=== PATIENT | female | born 1970 | race Caucasian/White ===

== ENCOUNTER 2018-01-27 05:56 | Inpatient (IN) | payer BC ==
[2018-01-27] MEDS: TRANEXAMIC ACID 1,000 MG in DEXTROSE 5% 100 ML IVPB (06:00)
[2018-01-27] MEDS: SOD CHLORIDE 0.9% 100 ML, TRANEXAMIC ACID 3,000 MG IRR (06:00)
[2018-01-27] MEDS ORDERED: BUPIVACAINE 0.5% (SDV) 30 ML, morphine SULFATE (PF) 8 MG, EPINEPHrine 0.3 MG, KETOROLAC... IRR (06:00)
[2018-01-27] MEDS: CEFAZOLIN 2 GM/50 ML (PMX) 50 ML IVPB (06:00)
[2018-01-27] MEDS: DEXAMETHASONE 1 MG TAB PO (06:36)
[2018-01-27] MEDS: GABAPENTIN 300 MG CAP PO ×2 (06:36→21:12)
[2018-01-27] MEDS: traMADol 50 MG TAB PO (06:44)
[2018-01-27] MEDS ORDERED: THROMBIN 5000 UNIT VIAL (06:55)
[2018-01-27] MEDS ORDERED: CA CHLORIDE 10% 10 ML SYRINGE (06:56)
[2018-01-27] MEDS ORDERED: morphine SULFATE/PF (10 MG/10 ML) INJ (07:01)
[2018-01-27] MEDS ORDERED: CEFAZOLIN 1 GM INJ (07:01)
[2018-01-27] MEDS ORDERED: METOCLOPRAMIDE 10 MG INJ (07:01)
[2018-01-27] MEDS ORDERED: PROPOFOL 20 ML (07:01)
[2018-01-27] MEDS ORDERED: ONDANSETRON 4 MG INJ (07:01)
[2018-01-27] MEDS ORDERED: BUPIVACAINE 0.75%/DEXT (SPINAL) 2 ML INJ (07:01)
[2018-01-27] MEDS ORDERED: LIDOCAINE 2% (SDV) 5 ML INJ (07:01)
[2018-01-27] MEDS ORDERED: HYDROmorphONE 0.5 MG/0.5 ML SYG IV ×2 (08:30)
[2018-01-27] MEDS ORDERED: DIPHENHYDRAMINE 50 MG INJ IV ×2 (08:30→09:00)
[2018-01-27] MEDS ORDERED: NALOXONE (0.4 MG/ML) INJ IV (08:30)
[2018-01-27] MEDS: LIOTHYRONINE 25 MCG TAB PO (09:00)
[2018-01-27] MEDS: PANTOPRAZOLE (EC) 40 MG TAB PO (09:00)
[2018-01-27] MEDS: SENNA/DOCUSATE NA (8.6MG/50MG) TAB PO ×2 (09:00→21:11)
[2018-01-27] MEDS: LOSARTAN 50 MG TAB PO (09:00)
[2018-01-27] MEDS: CEFAZOLIN 1 GM/50 ML (PMX) 50 ML IVPB ×2 (09:00→18:05)
[2018-01-27] MEDS: LEVOTHYROXINE 100 MCG TAB PO (09:00)
[2018-01-27] MEDS ORDERED: MAGNESIUM HYDROXIDE 30ML CUP PO (09:00)
[2018-01-27] MEDS ORDERED: ZOLPIDEM 5 MG TAB PO (09:00)
[2018-01-27] MEDS ORDERED: morphine 2 MG INJ IV ×2 (09:00)
[2018-01-27] MEDS ORDERED: MEPERIDINE 25 MG INJ (09:03)
[2018-01-27] MEDS: [UNRECOGNIZED DRUG - REMARK] XX (09:30)
[2018-01-27] MEDS: TRANEXAMIC ACID 1,000 MG in DEXTROSE 5% 100 ML IV (09:43)
[2018-01-27 09:48] LABS: ADD MAN DIFF? NO
[2018-01-27 09:54] LABS: WHITE BLOOD COUNT 9.1 10^3/ul (4.8-10.8)
[2018-01-27 09:54] LABS: BASOPHILS % 0.3 % (0.0-2.0); EOSINOPHILS # 0.1 10^3/ul (0.0-0.5); HEMATOCRIT 39.5 % (37.0-47.0); HEMOGLOBIN 13.1 g/dl (12.0-16.0); LYMPHOCYTES # 1.4 10^3/ul (0.8-2.9); MEAN CORPUSCULAR HEMOGLOBIN 30.2 pg (29.0-33.0); MEAN CORPUSCULAR HGB CONC 33.2 g/dl (32.0-37.0); MEAN PLATELET VOLUME 9.8 fl (7.4-10.4); MONOCYTE # 0.4 10^3/ul (0.3-0.9); MONOCYTES % 4.2 % (0.0-11.0); NEUTROPHIL # 7.1 10^3/ul (1.6-7.5); NEUTROPHILS % 78.6 % (39.0-77.0); PLATELET COUNT 207 10^3/UL (140-415); RED BLOOD COUNT 4.34 10^6/ul (4.20-5.40); RED CELL DISTRIBUTION WIDTH 12.4 % (11.5-14.5)
[2018-01-27] MEDS: POLYMYXIN/BACITRACIN 1L IRRIG (10:28)
[2018-01-27] MEDS: DEXAMETHASONE 2 MG TAB PO ×2 (12:50→18:00)
[2018-01-27] MEDS: LACTATED RINGER'S 1,000 ML IV ×3 (12:51→21:10)
[2018-01-27] MEDS: ONDANSETRON 4 MG INJ IV ×3 (12:56→18:04)
[2018-01-27] MEDS ORDERED: morphine LIQ (10 MG/5 ML) CUP PO ×2 (14:00)
[2018-01-27] MEDS: ACCU-CHEK XX (18:05)
[2018-01-27] MEDS: TRESIBA U SC (18:08)
[2018-01-27] MEDS: ATORVASTATIN 80 MG TAB PO (21:10)
[2018-01-27] MEDS ORDERED: ONDANSETRON 4 MG INJ IV (21:30)
[2018-01-27] MEDS: TRIMETHOBENZAMIDE 100 MG/ML VIAL IM (21:42)
[2018-01-28] MEDS: DEXAMETHASONE 2 MG TAB PO ×2 (00:18→06:33)
[2018-01-28] MEDS: CEFAZOLIN 1 GM/50 ML (PMX) 50 ML IVPB (00:19)
[2018-01-28] MEDS: ACETAMINOPHEN 500 MG TAB PO (03:42)
[2018-01-28] MEDS: ONDANSETRON 4 MG INJ IV (03:45)
[2018-01-28] MEDS: LACTATED RINGER'S 1,000 ML IV (03:55)
[2018-01-28 05:09] LABS: ADD MAN DIFF? NO; BASOPHILS % 0.2 % (0.0-2.0); EOSINOPHILS % 0.1 % (0.0-7.0); HEMATOCRIT 33.4 % (37.0-47.0); HEMOGLOBIN 11.2 g/dl (12.0-16.0); LYMPHOCYTES # 1.2 10^3/ul (0.8-2.9); LYMPHOCYTES % 12.4 % (15.0-51.0); MEAN CORPUSCULAR HEMOGLOBIN 30.3 pg (29.0-33.0); MEAN CORPUSCULAR HGB CONC 33.5 g/dl (32.0-37.0); MEAN CORPUSCULAR VOLUME 90.3 fl (82.0-101.0); MEAN PLATELET VOLUME 9.9 fl (7.4-10.4); MONOCYTE # 1.1 10^3/ul (0.3-0.9); MONOCYTES % 11.2 % (0.0-11.0); NEUTROPHIL # 7.3 10^3/ul (1.6-7.5); NEUTROPHILS % 75.8 % (39.0-77.0); PLATELET COUNT 182 10^3/UL (140-415); RED CELL DISTRIBUTION WIDTH 12.6 % (11.5-14.5)
[2018-01-28 05:09] LABS: WHITE BLOOD COUNT 9.6 10^3/ul (4.8-10.8)
[2018-01-28] MEDS: KETOROLAC 15 MG INJ IV ×2 (06:34→12:33)
[2018-01-28] MEDS: ACCU-CHEK XX (07:20)
[2018-01-28] MEDS: ASPIRIN 81 MG TAB PO (08:54)
[2018-01-28] MEDS: LIOTHYRONINE 25 MCG TAB PO (08:54)
[2018-01-28] MEDS: SENNA/DOCUSATE NA (8.6MG/50MG) TAB PO (08:54)
[2018-01-28] MEDS: metFORMIN 500 MG TAB PO (08:55)
[2018-01-28] MEDS: PANTOPRAZOLE (EC) 40 MG TAB PO (08:55)
[2018-01-28] MEDS: LEVOTHYROXINE 100 MCG TAB PO (08:55)
[2018-01-28] MEDS: TRESIBA U SC (08:57)
[2018-01-28] MEDS: LOSARTAN 50 MG TAB PO (08:58)
== END 2018-01-28 12:43 | disposition home or self-care (01) | DRG 470 ==
LOC: REC 05:56 → MS1 10:38
PROVIDERS: Orthopaedic Surgery
PROC: 0SRB04Z Replacement of Left Hip Joint with Ceramic on Polyethylene Synthetic Substitute, Open Approach (ICD-10-PCS; principal; 2018-01-27 07:00)
DX: M16.52 Unilateral post-traumatic osteoarthritis, left hip (principal); J45.909 Unspecified asthma, uncomplicated; K21.9 Gastro-esophageal reflux disease without esophagitis; E11.9 Type 2 diabetes mellitus without complications; I10 Essential (primary) hypertension; E03.9 Hypothyroidism, unspecified
CPT/HCPCS: 72170; 73530; 82962; 85025; 86999; 87086; 97161

== ENCOUNTER 2018-07-21 05:33 | Inpatient (IN) | payer BC ==
[2018-07-21] MEDS: TRANEXAMIC ACID 1,000 MG in DEXTROSE 5% 100 ML IVPB (06:00)
[2018-07-21] MEDS ORDERED: BUPIVACAINE 0.5% (SDV) 30 ML, morphine SULFATE (PF) 8 MG, EPINEPHrine 0.3 MG, KETOROLAC... IRR (06:00)
[2018-07-21] MEDS: DEXAMETHASONE 1 MG TAB PO (06:20)
[2018-07-21] MEDS: GABAPENTIN 300 MG CAP PO ×2 (06:20→20:34)
[2018-07-21] MEDS: traMADol 50 MG TAB PO (06:20)
[2018-07-21] MEDS ORDERED: NEOSTIGMINE 3 MG/3 ML SYRINGE (06:56)
[2018-07-21] MEDS ORDERED: PROPOFOL 20 ML (06:56)
[2018-07-21] MEDS ORDERED: ROCURONIUM 50 MG INJ (06:56)
[2018-07-21] MEDS ORDERED: GLYCOPYRROLATE 0.4 MG INJ (06:56)
[2018-07-21] MEDS ORDERED: CEFAZOLIN 1 GM INJ (06:56)
[2018-07-21] MEDS ORDERED: ONDANSETRON 4 MG INJ (06:57)
[2018-07-21] MEDS ORDERED: FENTAnyl 50 MCG/ML VIAL (06:57)
[2018-07-21] MEDS ORDERED: MIDAZOLAM 1 MG/ML 2 ML INJ (06:57)
[2018-07-21] MEDS ORDERED: DEXAMETHASONE 4 MG/ML 1 ML INJ (06:57)
[2018-07-21] MEDS ORDERED: morphine SULFATE/PF (10 MG/10 ML) INJ (06:57)
[2018-07-21] MEDS ORDERED: SUGAMMADEX SODIUM 200 MG/2 ML VIAL IV (07:00)
[2018-07-21] MEDS: SOD CHLORIDE 0.9% 100 ML, TRANEXAMIC ACID 3,000 MG IRR (07:13)
[2018-07-21] MEDS: CEFAZOLIN 2 GM/50 ML (PMX) 50 ML IVPB (07:21)
[2018-07-21] MEDS: THROMBIN 5000 UNIT VIAL (07:40)
[2018-07-21] MEDS: CA CHLORIDE 10% 10 ML SYRINGE (07:40)
[2018-07-21] MEDS: POLYMYXIN/BACITRACIN 1L IRRIG (07:40)
[2018-07-21] MEDS ORDERED: SCOPOLAMINE 1.5 MG PATCH (08:07)
[2018-07-21] MEDS ORDERED: DIPHENHYDRAMINE 50 MG INJ (08:11)
[2018-07-21] MEDS ORDERED: INSULIN DEGLUDEC 52 UNIT SQ (09:00)
[2018-07-21] MEDS ORDERED: IPRATROPIUM (NEB) 0.5 MG/2.5 ML AMP HHN (09:30)
[2018-07-21] MEDS ORDERED: KETOROLAC 30 MG INJ IV (09:30)
[2018-07-21] MEDS ORDERED: MEPERIDINE 25 MG INJ IV (09:30)
[2018-07-21] MEDS ORDERED: TRIMETHOBENZAMIDE 100 MG/ML VIAL IM ×2 (09:30)
[2018-07-21] MEDS ORDERED: NALOXONE (0.4 MG/ML) INJ IV (09:30)
[2018-07-21] MEDS ORDERED: NALBUPHINE HCL (10 MG/1 ML) INJ IV (09:30)
[2018-07-21] MEDS ORDERED: ALBUTEROL 0.083% (NEB) 2.5 MG/3 ML AMP HHN (09:30)
[2018-07-21] MEDS ORDERED: ZOLPIDEM 5 MG TAB PO ×2 (09:30→10:00)
[2018-07-21] MEDS ORDERED: LABETALOL HCL 20MG INJ IV (09:30)
[2018-07-21] MEDS ORDERED: MIDAZOLAM 1 MG/ML 2 ML INJ IV (09:30)
[2018-07-21] MEDS ORDERED: OXYCODONE/ACETAMINOPHEN (5/325) TAB PO ×3 (09:30→10:00)
[2018-07-21] MEDS ORDERED: hydrALAzine 20 MG INJ IV (09:30)
[2018-07-21] MEDS ORDERED: FENTAnyl 50 MCG/ML VIAL IV ×3 (09:30)
[2018-07-21] MEDS ORDERED: HYDROmorphONE 1 MG/5 ML IV SYRINGE IV ×3 (09:30)
[2018-07-21] MEDS ORDERED: DIPHENHYDRAMINE 50 MG INJ IV ×3 (09:30→10:00)
[2018-07-21] MEDS ORDERED: ONDANSETRON 4 MG INJ IV ×3 (09:30→10:00)
[2018-07-21] MEDS ORDERED: HYDROmorphONE 0.5 MG/0.5 ML SYG IV ×2 (09:30)
[2018-07-21] MEDS ORDERED: EPHEDrine SULFATE 50 MG/5 ML SYG IV (09:30)
[2018-07-21] MEDS: LACTATED RINGER'S 1,000 ML IV ×3 (09:52→20:36)
[2018-07-21] MEDS ORDERED: TRANEXAMIC ACID 1,000 MG in DEXTROSE 5% 100 ML IV (10:00)
[2018-07-21] MEDS ORDERED: MAGNESIUM HYDROXIDE 30ML CUP PO (10:00)
[2018-07-21] MEDS ORDERED: morphine 2 MG INJ IV ×2 (10:00)
[2018-07-21] MEDS ORDERED: KETOROLAC 15 MG INJ IV (10:00)
[2018-07-21] MEDS ORDERED: ACETAMINOPHEN 500 MG TAB PO (10:00)
[2018-07-21 10:07] LABS: ADD MAN DIFF? NO
[2018-07-21] MEDS: CEFAZOLIN 1 GM/50 ML (PMX) 50 ML IVPB ×2 (10:10→17:49)
[2018-07-21 10:11] LABS: BASOPHIL # 0.1 10^3/ul (0.0-0.1); BASOPHILS % 0.4 % (0.0-2.0); EOSINOPHILS # 0.1 10^3/ul (0.0-0.5); EOSINOPHILS % 0.7 % (0.0-7.0); HEMATOCRIT 38.9 % (37.0-47.0); HEMOGLOBIN 12.8 g/dl (12.0-16.0); LYMPHOCYTES # 1.7 10^3/ul (0.8-2.9); LYMPHOCYTES % 13.8 % (15.0-51.0); MEAN CORPUSCULAR HEMOGLOBIN 30.2 pg (29.0-33.0); MEAN CORPUSCULAR HGB CONC 32.9 g/dl (32.0-37.0); MEAN CORPUSCULAR VOLUME 91.7 fl (82.0-101.0); MEAN PLATELET VOLUME 9.3 fl (7.4-10.4); MONOCYTE # 0.3 10^3/ul (0.3-0.9); MONOCYTES % 2.6 % (0.0-11.0); NEUTROPHIL # 9.9 10^3/ul (1.6-7.5); NEUTROPHILS % 81.7 % (39.0-77.0); PLATELET COUNT 262 10^3/UL (140-415); RED BLOOD COUNT 4.24 10^6/ul (4.20-5.40); RED CELL DISTRIBUTION WIDTH 12.4 % (11.5-14.5)
[2018-07-21 10:11] LABS: WHITE BLOOD COUNT 12.1 10^3/ul (4.8-10.8)
[2018-07-21 10:15] LABS: HOLD TRANSMISSIONS 1
[2018-07-21] MEDS: LOSARTAN 50 MG TAB PO (11:44)
[2018-07-21] MEDS: DEXAMETHASONE 2 MG TAB PO ×2 (11:44→17:48)
[2018-07-21] MEDS: OXYCODONE/ACETAMINOPHEN (5/325) TAB PO (15:22)
[2018-07-21] MEDS: [UNRECOGNIZED DRUG - OTHER] XX (16:30)
[2018-07-21] MEDS: SENNA/DOCUSATE NA (8.6MG/50MG) TAB PO (20:34)
[2018-07-21] MEDS: ATORVASTATIN 40 MG TAB PO (20:34)
[2018-07-21] MEDS: INSULIN DEGLUDEC 200 UNIT/ML INSULN.PEN SC (21:00)
[2018-07-22] MEDS: OXYCODONE/ACETAMINOPHEN (5/325) TAB PO ×2 (00:36→08:39)
[2018-07-22] MEDS: DEXAMETHASONE 2 MG TAB PO ×2 (00:41→06:04)
[2018-07-22] MEDS: CEFAZOLIN 1 GM/50 ML (PMX) 50 ML IVPB (02:23)
[2018-07-22 05:01] LABS: ADD MAN DIFF? NO
[2018-07-22 05:11] LABS: WHITE BLOOD COUNT 16.3 10^3/ul (4.8-10.8)
[2018-07-22 05:11] LABS: BASOPHILS % 0.1 % (0.0-2.0); HEMATOCRIT 33.8 % (37.0-47.0); HEMOGLOBIN 11.1 g/dl (12.0-16.0); LYMPHOCYTES % 6.2 % (15.0-51.0); MEAN CORPUSCULAR HGB CONC 32.8 g/dl (32.0-37.0); MEAN CORPUSCULAR VOLUME 91.4 fl (82.0-101.0); MEAN PLATELET VOLUME 9.8 fl (7.4-10.4); MONOCYTE # 0.8 10^3/ul (0.3-0.9); NEUTROPHIL # 14.3 10^3/ul (1.6-7.5); NEUTROPHILS % 88.1 % (39.0-77.0); PLATELET COUNT 279 10^3/UL (140-415); RED CELL DISTRIBUTION WIDTH 12.5 % (11.5-14.5)
[2018-07-22] MEDS: LACTATED RINGER'S 1,000 ML IV (05:52)
[2018-07-22] MEDS ORDERED: LEVOTHYROXINE 50 MCG TAB PO (06:00)
[2018-07-22] MEDS: PANTOPRAZOLE (EC) 40 MG TAB PO (06:04)
[2018-07-22] MEDS: LEVOTHYROXINE 100 MCG TAB PO (07:00)
[2018-07-22] MEDS: ASPIRIN 81 MG TAB PO (08:34)
[2018-07-22] MEDS: LOSARTAN 50 MG TAB PO (08:35)
[2018-07-22] MEDS: ALLOPURINOL 100 MG TAB PO (08:35)
[2018-07-22] MEDS: SENNA/DOCUSATE NA (8.6MG/50MG) TAB PO (08:35)
[2018-07-22] MEDS ORDERED: LIOTHYRONINE 25 MCG TAB PO (09:00)
[2018-07-22 10:17] LABS: ADD UMIC NO; UR ASCORBIC ACID NEGATIVE (NEGATIVE); UR BILIRUBIN (Dip) NEGATIVE (NEGATIVE); UR BLOOD (Dip) NEGATIVE (NEGATIVE); UR CLARITY CLEAR (CLEAR); UR COLOR STRAW (YELLOW); UR GLUCOSE (Dip) 3+ mg/dL (NEGATIVE); UR KETONES (Dip) NEGATIVE (NEGATIVE); UR LEUKOCYTE ESTERASE (Dip) NEGATIVE Leu/ul (NEGATIVE); UR NITRITE (Dip) NEGATIVE (NEGATIVE); UR SPECIFIC GRAVITY (Dip) 1.014 (1.003-1.030); UR TOTAL PROTEIN (Dip) NEGATIVE (NEGATIVE); UR UROBILINOGEN (Dip) NEGATIVE (NEGATIVE)
== END 2018-07-22 10:10 | disposition home or self-care (01) | DRG 470 ==
LOC: REC 05:33 → MS1 10:52
PROVIDERS: Orthopaedic Surgery
PROC: 0SR904Z Replacement of Right Hip Joint with Ceramic on Polyethylene Synthetic Substitute, Open Approach (ICD-10-PCS; principal; 2018-07-21 07:00)
DX: M16.11 Unilateral primary osteoarthritis, right hip (principal)
CPT/HCPCS: 72170; 73530; 81003; 82962; 85025; 86999; 87086; 88304; 88311; 97161